=== PATIENT | female | born 1965 | race Hispanic/Latino ===

== ENCOUNTER 2018-09-20 08:44 | Day surgery (SDC) | payer OTHER ==
[2018-09-19 10:41] VITALS: BMI 27.4
[2018-09-20 09:42] VITALS: O2SAT 100
[2018-09-20 10:51] LABS: BASO # 0.1 K/uL (0.0-0.2); BASO % 0.8 % (0.0-2.0); EOS # 0.3 K/uL (0.0-0.7); EOS % 4.7 % (0.0-4.0); HEMOGLOBIN 13.6 g/dL (11.0-16.0); LYMPH # 1.4 K/uL (1.0-4.3); LYMPH % 20.6 % (20.0-40.0); MEAN CELL VOLUME 87.3 fL (81.0-99.0); MEAN CORPUSCULAR HEMOGLOBIN 29.5 pg (27.0-31.0); MEAN CORPUSCULAR HGB CONC 33.8 g/dL (33.0-37.0); MEAN PLATELET VOLUME 9.2 fL (7.2-11.7); MONO # 0.4 K/uL (0.0-0.8); MONO % 6.1 % (0.0-10.0); NEUT # 4.6 K/uL (1.8-7.0); NEUT % 67.8 % (50.0-75.0); NRBC % 0.1 % (0.0-2.0); RBC 4.6 Mil/uL (3.80-5.20); RED CELL DISTRIBUTION WIDTH 12.7 % (11.5-14.5); WHITE BLOOD COUNT 6.8 K/uL (4.8-10.8)
[2018-09-20 10:58] LABS: ALB/GLOB RATIO 1.4 (1.0-2.1); ALBUMIN 4.4 g/dL (3.5-5.0); ALT/SGPT 23 U/L (9-52); AST/SGOT 18 U/L (14-36); BLOOD UREA NITROGEN 17 mg/dL (7-17); CALCIUM 9.2 mg/dl (8.6-10.4); GFR NON-AFRICAN AMERICAN > 60; LIPASE 83 U/L (23-300)
[2018-09-20] MEDS ORDERED: Lactated Ringer's 1,000 ML IV ONE (11:25)
[2018-09-20] MEDS ORDERED: Propofol 10 mg/ml Inj (20 ML) ONE ×2 (11:35→12:36)
--- NOTE | 2018-09-20 11:37 | CP.SDSHP ---
Same Day Surgery H & P - History Proposed Procedure: EGD/biopsy Pre-Op Diagnosis: abdominal pain - Previous Medical/Surgical History Misc: Other (Bipolar Disorder) Previous Surgical History: endometriosis - Allergies Allergies: Allergies No Known Allergies Allergy (Verified 07/11/13 09:20) - Current Medications Current Medications: reviewed - Physical Exam General Appearance: wdwn nad Vital Signs: Vital Signs 09/20/18 09:27 Temperature 98.6 F Pulse Rate 78 Respiratory 20 Rate Blood Pressure 125/62 O2 Sat by Pulse 100 Oximetry Mental Status: Alert & Oriented x3 Heart: WNL Lungs: WNL GI: WNL - {Optional Preform as Required} Abdomen: WNL - Impression Impression: abdominal pain Pt. Evaluated Today:Candidate for Anesthesia & Procedure: Yes - Date & Time Date: 09/20/18 Time: 11:33 Short Stay Discharge - Short Stay Discharge Admitting Diagnosis/Reason for Visit: GENERALIZED ABDOMINAL PAIN Disposition: HOME/ ROUTINE
[2018-09-20 12:04] LABS: FOLATE 17.8 ng/mL
[2018-09-20 12:07] VITALS: TEMP 97.3
[2018-09-20] MEDS ORDERED: Lactated Ringer's 500 ML IV ONE (12:24)
[2018-09-20 13:19] VITALS: BP 111/57; PULSE 70; RESP 12
== END 2018-09-20 13:15 | disposition home or self-care (01) ==
LOC: C.ENDO 08:44
PROVIDERS: ATTEND Internal Medicine Gastroenterology
DX: K25.9 Gastric ulcer, unspecified as acute or chronic, without hemorrhage or perforation (principal); K29.30 Chronic superficial gastritis without bleeding
CPT/HCPCS: 36415; 43239; 80053; 82607; 82746; 82784; 83516; 83690; 83735; 84100; 84703; 85025; 85651; 88305; 88342; J2001; J2704; J7120

== ENCOUNTER 2018-10-04 09:40 | Day surgery (SDC) | payer OTHER ==
[2018-10-03 14:01] VITALS: BMI 27.1
--- NOTE | 2018-10-04 11:38 | CP.SDSHP ---
Same Day Surgery H & P - History Proposed Procedure: Colonoscopy Pre-Op Diagnosis: High risk screening exam - Previous Medical/Surgical History Comments: Bipolar Disorder. Gastritis/ulcer Previous Surgical History: endometriosis - Allergies Allergies: Allergies lactose Allergy (Verified 10/03/18 14:00) DIARRHEA - Current Medications Current Medications: reviewed, per reconciliation - Physical Exam General Appearance: wdwn nad Vital Signs: Vital Signs 10/04/18 09:53 Temperature 97.3 F L Pulse Rate 80 Respiratory 18 Rate Blood Pressure 122/83 O2 Sat by Pulse 99 Oximetry Mental Status: Alert & Oriented x3 Heart: WNL Lungs: WNL GI: WNL - {Optional Preform as Required} Abdomen: WNL - Impression Impression: Family history of Colon Cancer Pt. Evaluated Today:Candidate for Anesthesia & Procedure: Yes - Date & Time Date: 10/04/18 Time: 11:37 Short Stay Discharge - Short Stay Discharge Admitting Diagnosis/Reason for Visit: F/H COLON CA Disposition: HOME/ ROUTINE
[2018-10-04] MEDS ORDERED: Lactated Ringer's 500 ML IV ONE ×2 (11:39)
[2018-10-04] MEDS ORDERED: Propofol 10 mg/ml Inj (20 ML) ONE (11:46)
[2018-10-04 12:47] VITALS: TEMP 98
[2018-10-04 12:50] VITALS: O2SAT 100
[2018-10-04 13:01] VITALS: BP 122/80; PULSE 65; RESP 20
== END 2018-10-04 13:00 | disposition home or self-care (01) ==
LOC: C.ENDO 09:40
PROVIDERS: ATTEND Internal Medicine Gastroenterology
DX: Z12.11 Encounter for screening for malignant neoplasm of colon (principal); Z80.0 Family history of malignant neoplasm of digestive organs; K64.0 First degree hemorrhoids; F31.9 Bipolar disorder, unspecified
CPT/HCPCS: 45378; 84703; J2704; J7120